=== PATIENT | male | born 1995 | race Asian ===

== ENCOUNTER 2021-03-16 17:39 | Emergency (ER) | payer OTHER ==
[2021-03-16 17:59] VITALS: BP 132/86
--- NOTE | 2021-03-16 19:22 | ED Physician Documentation ---
PD HPI URI - Stated complaint Stated Complaint: BODY ACHES,COUGH,SORE THROAT - Chief complaint Chief Complaint: Resp - History obtained from History obtained from: Patient - History of Present Illness Timing - onset: Today Associated symptoms: Nasal congestion, Dry cough. 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 He states that his command told him to come here to get an SIQ chit. Nothing makes it better or worse. No vomiting. No diarrhea. No abdominal pain. Review of Systems Constitutional: denies: Fever, Chills GI: denies: Vomiting, Diarrhea Skin: denies: Rash Musculoskeletal: denies: Neck pain, Back pain Neurologic: denies: Headache PD PAST MEDICAL HISTORY - Past Medical History Past Medical History: No - Past Surgical History Past Surgical History: No - Present Medications Home Medications: Ambulatory Orders Medication Instructions Recorded Confirmed Benzonatate [Tessalon] 200 mg PO TID PRN #30 cap 03/16/21 Cetirizine HCl/Pseudoephedrine 1 each PO BID PRN #30 ea 03/16/21 [Zyrtec-D Tablet] - Allergies Allergies/Adverse Reactions: Allergies Allergy/AdvReac Type Severity Reaction Status Date / Time No Known Drug Allergies Allergy Verified 03/16/21 17:59 - Social History Does the pt smoke?: No Smoking Status: Never smoker Does the pt drink ETOH?: No Does the pt have substance abuse?: No - Immunizations Immunizations are current?: Yes - POLST Patient has POLST: No PD ED PE NORMAL - Vitals Vital signs reviewed: Yes - General General: Alert and oriented X 3, No acute distress, Well developed/nourished - HEENT HEENT: PERRL, Ears normal, Moist mucous membranes, Pharynx benign - Neck Neck: Supple, no meningeal sign, No adenopathy - Cardiac Cardiac: RRR - Respiratory Respiratory: No respiratory distress, Clear bilaterally - Abdomen Abdomen: Soft, Non tender, Non distended - Derm Derm: Warm and dry, No rash - Neuro Neuro: Alert and oriented X 3 - Psych Psych: Normal mood, Normal affect Results - Vitals Vitals: Vital Signs - 24 hr 03/16/21 17:54 Temperature 36.2 C L Heart Rate 79 Respiratory 18 Rate Blood Pressure 132/86 H O2 Saturation 98 Oxygen O2 Source Room air PD MEDICAL DECISION MAKING - ED course Complexity details: considered differential, d/w patient ED course: Patient is well-appearing, nontoxic. Afebrile. Likely Covid. We will treat as a viral syndrome. Covid testing performed. No indication for imaging. No hypoxia or respiratory distress. Patient counseled regarding signs and symptoms for which I believe and urgent re-evaluation would be necessary. Patient with good understanding of and agreement to plan and is comfortable going home at this time This document was made in part using voice recognition software. While efforts are made to proofread this document, sound alike and grammatical errors may occur. Departure - Departure Disposition: 01 Home, Self Care Clinical Impression: Viral URI Condition: Good Instructions: ED Viral Syndrome Follow-Up: YOB[facility] Rod [Provider Group] - Within 1 week Prescriptions: Benzonatate [Tessalon] 200 mg PO TID PRN #30 cap PRN Reason: Cough Cetirizine HCl/Pseudoephedrine [Zyrtec-D Tablet] 1 each PO BID PRN #30 ea PRN Reason: nasal congestion Comments: Please follow-up with your doctor as needed for further care. Drink plenty of fluids and rest. Your prescriptions were sent to the [facility] pharmacy. You have a Covid test pending. You need to self quarantine until the result is done and negative. The results should be done in 24-48 hours. We will call with a positive result, the fastest way to get a negative result for confirmation though is to go to the hospital website at [email or web address], click on the my [facility] tab and sign up for the patient portal. If any of your friends and/or family need to be tested, they can call the hospital at [phone] for an appointment to have their Covid test. You will need to be quarantined until you receive your test results. If they are positive, the doctors hospital medical personnel will tell you how long to stay quarantined. If they are negative, you do not need to be quarantined. Discharge Date/Time: 03/16/21 19:29
== END 2021-03-16 19:29 | disposition home or self-care (01) ==
LOC: ED 17:39
DX: J06.9 Acute upper respiratory infection, unspecified (principal); B97.89 Other viral agents as the cause of diseases classified elsewhere; Z20.822 Contact with and (suspected) exposure to COVID-19
CPT/HCPCS: 99283

== ENCOUNTER 2021-04-02 09:58 | Emergency (ER) | payer OTHER ==
[2021-04-02 10:15] VITALS: BP 140/83
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
[2021-04-02] MEDS ORDERED: IBUPROFEN 800 MG TABLET PO STA (10:55)
== END 2021-04-02 11:02 | disposition home or self-care (01) ==
LOC: ED 09:58
DX: M54.2 Cervicalgia (principal); R51.9 Headache, unspecified; V89.2XXA Person injured in unspecified motor-vehicle accident, traffic, initial encounter
CPT/HCPCS: 99282; A9270

== ENCOUNTER 2021-10-15 16:32 | Outpatient (CLI) | payer OTHER ==
[2021-10-15 23:28] LABS: CHLAMYDIA TRACHOMATIS DNA NEGATIVE (NEGATIVE); NEISSERIA GONORRHOEAE DNA NEGATIVE (NEGATIVE)
== END 2021-10-15 16:33 | disposition home or self-care (01) ==
LOC: LAB.N 16:32
PROVIDERS: ATTEND Registered Nurse
DX: R30.9 Painful micturition, unspecified (principal)
CPT/HCPCS: 87491; 87591; 87661

== ENCOUNTER 2021-11-19 08:00 | Outpatient (CLI) | payer OTHER ==
[2021-11-19 23:02] LABS: CHLAMYDIA TRACHOMATIS DNA NEGATIVE (NEGATIVE); NEISSERIA GONORRHOEAE DNA NEGATIVE (NEGATIVE)
== END 2021-11-19 23:59 | disposition home or self-care (01) ==
LOC: LAB.N 08:00
PROVIDERS: ATTEND Registered Nurse
DX: R30.9 Painful micturition, unspecified (principal)
CPT/HCPCS: 87491; 87591; 87661

== ENCOUNTER 2021-11-30 22:33 | Emergency (ER) | payer OTHER ==
--- NOTE | 2021-11-30 23:37 | ED Physician Documentation ---
History of Present Illness - Stated complaint Stated Complaint: COUGH PHLEGM/BLOOD - Chief complaint Chief Complaint: Resp - History obtained from History obtained from: Patient - History of Present Illness Timing: How many days ago (3) Pain level now: 0 Improved by: no ameliorating factors Worsened by: no exacerbating factors - Additonal information Additional information: c/o 3 days of worsening sinus and chest congestion, hoarse voice , cough productive of green sputum that became blood-tinged today. Denies fever. Review of Systems Constitutional: reports: Myalgias, Fatigue. denies: Fever, Chills, Sweats Ears: denies: Ear pain Nose: reports: Congestion, Sinus pressure / pain. denies: Rhinorrhea / runny nose Throat: denies: Sore throat Cardiac: reports: Reviewed and negative Respiratory: reports: Cough, Hemoptysis (blood-tinged sputum since earlier today). denies: Dyspnea, Wheezing GI: reports: Reviewed and negative PD PAST MEDICAL HISTORY - Past Medical History Past Medical History: No - Past Surgical History Past Surgical History: No - Present Medications Home Medications: Ambulatory Orders Medication Instructions Recorded Confirmed Azithromycin [Zithromax] 250 mg PO DAILY #4 tablet 11/30/21 Sertraline HCl 200 mg PO DAILY 11/30/21 11/30/21 - Allergies Allergies/Adverse Reactions: Allergies Allergy/AdvReac Type Severity Reaction Status Date / Time No Known Drug Allergies Allergy Verified 11/30/21 22:44 - Social History Does the pt smoke?: No Smoking Status: Never smoker Does the pt drink ETOH?: No Does the pt have substance abuse?: No - Immunizations Immunizations are current?: Yes - POLST Patient has POLST: No PD ED PE NORMAL - Vitals Vital signs reviewed: Yes - General General: Alert and oriented X 3, No acute distress, Well developed/nourished - Neck Neck: Supple, no meningeal sign - Cardiac Cardiac: RRR, No murmur, No gallop, No rub - Respiratory Respiratory: No respiratory distress, Other (scattered bilateral rhonchi without focal adventitious breath sounds ) Results - Vitals Vitals: Oxygen O2 Source Room air - Labs Labs: Laboratory Tests 11/30/21 00:11 Nasal Adenovirus (PCR) NOT DETECTED Nasal B. parapertussis DNA (PCR) NOT DETECTED Nasal Coronavir 229E PCR NOT DETECTED Nasal Coronavir HKU1 PCR NOT DETECTED Nasal Coronavir NL63 PCR NOT DETECTED Nasal Coronavir OC43 PCR NOT DETECTED Nasal Enterovir/Rhinovir PCR NOT DETECTED Nasal Influenza B PCR NOT DETECTED Nasal Influenza A PCR NOT DETECTED Nasal Parainfluen 1 PCR NOT DETECTED Nasal Parainfluen 2 PCR NOT DETECTED Nasal Parainfluen 3 PCR NOT DETECTED Nasal Parainfluen 4 PCR NOT DETECTED Nasal RSV (PCR) NOT DETECTED Nasal B.pertussis DNA PCR NOT DETECTED Nasal C.pneumoniae (PCR) NOT DETECTED Yobani Human Metapneumo PCR NOT DETECTED Nasal M.pneumoniae (PCR) NOT DETECTED Nasal SARS-CoV-2 (PCR) NOT DETECTED PD MEDICAL DECISION MAKING - ED course Complexity details: considered differential, d/w patient Departure - Departure Disposition: 01 Home, Self Care Clinical Impression: Sinusitis, Bronchitis Condition: Good Instructions: ED Upper Resp Infec Abx Tx, ED Sinusitis Abx Tx Follow-Up: YOB[facility] Rod [Provider Group] Prescriptions: Azithromycin [Zithromax] 250 mg PO DAILY #4 tablet Comments: You have a COVID test result that is pending. As we discussed, the result will not change immediate management, but if you test positive, there would be implications regarding quarantine/return to work. You were given an antibiotic (azithromycin) for sinusitis and bronchitis. The first dose was given in the ER and the prescription for the rest of the course of antibiotic has been electronically submitted to [facility] pharmacy in [place]. Forms: Activity restrictions Discharge Date/Time: 12/01/21 00:02
[2021-11-30] MEDS ORDERED: AZITHROMYCIN 250 MG TABLET PO STA (23:54)
[2021-12-01 00:04] VITALS: BP 122/71
[2021-12-01 01:24] LABS: B. PARAPERTUSSIS- RESP PCR PAN NOT DETECTED; B. PERTUSSIS- RESP PCR PANEL NOT DETECTED; C. PNEUMONIAE- RESP PCR PANEL NOT DETECTED; CORONAVIRUS 229E-RESP PCR NOT DETECTED; CORONAVIRUS HKU1-RESP PCR NOT DETECTED; CORONAVIRUS NL63-RESP PCR NOT DETECTED; CORONAVIRUS OC43-RESP PCR NOT DETECTED; HUMAN METAPNEUMOVIRUS NOT DETECTED; INFLUENZA A- RESP PCR PANEL NOT DETECTED; INFLUENZA B - RESP PCR PANEL NOT DETECTED; M. PNEUMONIAE- RESP PCR PANEL NOT DETECTED; PARAINFLUENZA VIRUS 1 NOT DETECTED; PARAINFLUENZA VIRUS 2 NOT DETECTED; PARAINFLUENZA VIRUS 3 NOT DETECTED; PARAINFLUENZA VIRUS 4 NOT DETECTED; RHINOVIRUS/ENTEROVIRUS NOT DETECTED; RSV- RESP PCR PANEL NOT DETECTED; SARS-CoV-2 -RESP PCR PANEL NOT DETECTED
== END 2021-12-01 00:02 | disposition home or self-care (01) ==
LOC: ED 22:33
DX: J32.9 Chronic sinusitis, unspecified (principal); J40 Bronchitis, not specified as acute or chronic; Z20.822 Contact with and (suspected) exposure to COVID-19
CPT/HCPCS: 87633; 99282; 99283; A9270

== ENCOUNTER 2023-07-05 19:38 | Emergency (ER) | payer OTHER ==
[2023-07-05 20:21] VITALS: BP 143/84; O2SAT 100
[2023-07-05 20:25] LABS: RAPID STREP SCREEN POSITIVE (Negative)
--- NOTE | 2023-07-05 21:15 | ED Physician Documentation ---
PD HPI HEENT - Stated complaint Stated Complaint: SWELLING,NECK PX - Chief complaint Chief Complaint: Heent - Additional information Additional information: 28-year-old male presents emergency department for sore throat, body aches, generalized malaise. Patient reports that he has been feeling ill now for the last 2 to 3 days. Difficulty pain with swallowing. No pertinent past medical history. Able to swallow no shortness of breath no difficulty breathing. PD PAST MEDICAL HISTORY - Past Medical History Past Medical History: No - Past Surgical History Past Surgical History: No - Present Medications Home Medications: Ambulatory Orders Medication Instructions Recorded Confirmed Penicillin Vk 500 mg PO BID 10 Days #40 tablet 07/05/23 - Allergies Allergies/Adverse Reactions: Allergies Allergy/AdvReac Type Severity Reaction Status Date / Time No Known Drug Allergies Allergy Verified 07/05/23 20:04 - Social History Does the pt smoke?: No Smoking Status: Never smoker Does the pt drink ETOH?: No Does the pt have substance abuse?: No - Immunizations Immunizations are current?: Yes - POLST Patient has POLST: No PD ED PE NORMAL - Vitals Vital signs reviewed: Yes - General General: Alert and oriented X 3, No acute distress, Well developed/nourished - HEENT HEENT: Moist mucous membranes, Other (Pharynx erythema, no exudation tonsils 3+ bilaterally no abscess no hot potato voice) - Cardiac Cardiac: RRR - Respiratory Respiratory: No respiratory distress, Clear bilaterally Results - Vitals Vitals: Vital Signs - 24 hr 07/05/23 20:02 Temperature 36.4 C L Heart Rate 85 Respiratory 16 Rate Blood Pressure 143/84 H O2 Saturation 100 Oxygen O2 Source Room air - Labs Labs: Laboratory Tests 07/05/23 07/05/23 20:05 20:05 Nasal Adenovirus (PCR) NOT DETECTED Nasal B. parapertussis DNA (PCR) NOT DETECTED Nasal Coronavir 229E PCR NOT DETECTED Nasal Coronavir HKU1 PCR NOT DETECTED Nasal Coronavir NL63 PCR NOT DETECTED Nasal Coronavir OC43 PCR NOT DETECTED Nasal Enterovir/Rhinovir PCR NOT DETECTED Nasal Influenza B PCR NOT DETECTED Nasal Influenza A PCR NOT DETECTED Nasal Parainfluen 1 PCR NOT DETECTED Nasal Parainfluen 2 PCR NOT DETECTED Nasal Parainfluen 3 PCR NOT DETECTED Nasal Parainfluen 4 PCR NOT DETECTED Nasal RSV (PCR) NOT DETECTED Nasal B.pertussis DNA PCR NOT DETECTED Nasal C.pneumoniae (PCR) NOT DETECTED Eleuterio Human Metapneumo PCR NOT DETECTED Nasal M.pneumoniae (PCR) NOT DETECTED Nasal SARS-CoV-2 (PCR) NOT DETECTED Group A Strep Rapid POSITIVE H PD Medical Decision Making - ED course ED course: 28-year-old male presents emergency department for throat pain. The rapid group A strep came back positive. Additional respiratory swab was found to be negative. Patient was started on antibiotics here in the emergency department and additional antibiotics were sent to his preferred pharmacy outpatient. Patient is able to breathe without any difficulty no trismus, no mastoiditis, able to swallow. Patient was given ER return precautions all questions answered told to follow-up with primary care provider as needed all questions answered safe for discharge Departure - Departure Disposition: 01 Home, Self Care Clinical Impression: Group beta Strep positive Instructions: ED Strep Pharyngitis Conf Prescriptions: Penicillin Vk 500 mg PO BID 10 Days #40 tablet Comments: Thank you for trusting us with your care you we have found that you have group A strep we have started you on antibiotics here in the emergency department I have sent your prescription to your preferred pharmacy on file please pick this up first thing tomorrow morning you will take this twice a day for the next 10 days. Please come back to the ER if you notice any worsening throat pain swelling or any other concerning emergent symptoms. Forms: PCP List Discharge Date/Time: 07/05/23 21:46
[2023-07-05] MEDS: DEXAMETHASONE 10 MG/ML VIAL PO STA (21:29)
[2023-07-05] MEDS: CHERRY SYRUP 10 ML UDC PO ONE (21:29)
[2023-07-05] MEDS: PENICILLIN VK 250 MG TABLET PO STA (21:29)
[2023-07-05 21:31] LABS: B. PARAPERTUSSIS- RESP PCR PAN NOT DETECTED; B. PERTUSSIS- RESP PCR PANEL NOT DETECTED; C. PNEUMONIAE- RESP PCR PANEL NOT DETECTED; CORONAVIRUS 229E-RESP PCR NOT DETECTED; CORONAVIRUS HKU1-RESP PCR NOT DETECTED; CORONAVIRUS NL63-RESP PCR NOT DETECTED; CORONAVIRUS OC43-RESP PCR NOT DETECTED; HUMAN METAPNEUMOVIRUS NOT DETECTED; INFLUENZA A- RESP PCR PANEL NOT DETECTED; INFLUENZA B - RESP PCR PANEL NOT DETECTED; M. PNEUMONIAE- RESP PCR PANEL NOT DETECTED; PARAINFLUENZA VIRUS 1 NOT DETECTED; PARAINFLUENZA VIRUS 2 NOT DETECTED; PARAINFLUENZA VIRUS 3 NOT DETECTED; PARAINFLUENZA VIRUS 4 NOT DETECTED; RHINOVIRUS/ENTEROVIRUS NOT DETECTED; RSV- RESP PCR PANEL NOT DETECTED; SARS-CoV-2 -RESP PCR PANEL NOT DETECTED
== END 2023-07-05 21:46 | disposition home or self-care (01) ==
LOC: ED 19:38
DX: J02.0 Streptococcal pharyngitis (principal); B95.1 Streptococcus, group B, as the cause of diseases classified elsewhere
CPT/HCPCS: 87430; 87633; 99283; A9270

== ENCOUNTER 2023-07-19 08:00 | Outpatient (CLI) | payer OTHER ==
[2023-07-19 23:04] LABS: CHLAMYDIA TRACHOMATIS DNA NEGATIVE (NEGATIVE); NEISSERIA GONORRHOEAE DNA NEGATIVE (NEGATIVE); TRICHOMONAS VAGINALIS DNA NEGATIVE (NEGATIVE)
[2023-07-21 03:14] LABS: HIV SCREEN 4TH GENERATION Non Reactive (Non Reactive)
[2023-07-21 04:10] LABS: RPR Non Reactive (Non Reactive)
[2023-07-21 05:14] LABS: HSV 1 IGG TYPE SPEC <0.91 index (0.00-0.90); HSV 2 IGG TYPE SPEC <0.91 index (0.00-0.90)
== END 2023-07-19 23:59 | disposition home or self-care (01) ==
LOC: LAB.N 08:00
PROVIDERS: ATTEND Physician Assistant
DX: R30.0 Dysuria (principal)
CPT/HCPCS: 86592; 86695; 86696; 86803; 87389; 87491; 87591; 87661

== ENCOUNTER 2023-10-14 13:05 | Outpatient (CLI) | payer OTHER ==
--- NOTE | 2023-10-14 14:09 | Sleep Patient Instructions ---
Sleep Center Visit Summary - Patient Visit Information Reason for Visit: Initial consult for evaluation of sleep disordered breathing and other sleep issues. - Patient Instructions Instructions Attached: Sleep Study Additional Instructions: You will be completing a sleep study, either an in-lab polysomnography (PSG) or home sleep study (HST). You will follow-up in the sleep care office after the sleep study is completed to hear the results and talk about therapy, if needed. You will be called by our office staff to schedule this appointment, but you may contact us with any questions. - Clinic Information Contact: [facility] [address] [place] [address] [email or web address] T: [phone]
--- NOTE | 2023-10-14 14:13 | SLEEP CARE CONSULTATION ---
Information from patient questionnaire entered by Roxanne Reinoso. I have reviewed and concur with the information entered by Roxanne Reinoso. This document represents the service I personally performed and the decisions made by me, Cami Ribera ARNP. History of Present Illness Service Date and Time: 10/14/2023 1305 Reason for Visit: New patient Chief Complaint: reports: Insomnia, Unrefreshed sleep, Excessive daytime sleepiness, Fatigue, Frequent awakenings at night Date of Onset: 8 years Usual bedtime: 9:30 - 10:30 Time it takes to fall asleep: 1 - 4 hours Snores at night: Yes Observed to quit breathing while asleep: Yes Sleeps alone due to snoring: No Number of times waking at night: 2 - 3 Reasons for waking at night: reports: Bathroom, Other (Unknown reason) Toss, Turn, or Twitch while sleeping: Yes Recalls having dreams: No Usually gets out of bed at: 5:50 - 10 - 11 AM Feels refreshed in the morning: No Morning headache: No Sleepy or fatigued during the day: Yes Ever fallen asleep while driving: No (some drowsy driving) Takes day naps: No Dreams during day naps: Yes Prior sleep studies: No Additional HPI information: I had the pleasure of seeing SEFERINO ECHEVARRIA today regarding the possibility of him having a sleep disorder. His current complaints are excessive daytime sleepiness, fatigue, frequent night awakenings, insomnia and unrefreshed sleep. He says he can be in bed for up to 4 hours trying to fall asleep. He has been told that he snores. He has "overall tiredness" and just does not feel he sleeps well "at all". He either sleeps not enough or too much but does not feel rested when he gets up. He is being evaluated for possible ADHD. He takes Unisom every night with can help him fall asleep. He does not nap during the day. - Parasomnia Symptoms Ever been unable to move upon waking from sleep: Yes (used to have it a lot but not recently; only 3 times this year) Walks in sleep: No Talks in sleep: Yes Ever acted out dreams in sleep: Yes (waking up punching or kicking) Ever felt weak in the knees when startled or emotional: No Bothered by creepy, crawly, restless sensations in legs: Yes Problems with memory or concentration: Yes (both) Subjective Initial [place] Sleepiness Scale score: 15 (10/14/2023) Past Medical History Past Medical History: reports: Anxiety, Depression, Mood disorder (bad mood swings), Other (Getting seen for ADHD) Social History 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 Patient is single and lives in [place]. Have you smoked in the past 12 months: Yes (Vapes daily) Quit date: 2017 Alcohol use: Yes Alcohol amount and frequency: 2 - 3 beers, 1 - 2 times a month Caffeine use: Yes Caffeine amount and frequency: 500 - 600 mg every day Family History Family history of sleep disordered breathing: Yes Family Hx Sleep Apnea: Sibling: Sleep apnea - Treated (Brother and uncle), O ther: Sleep apnea - Treated Allergies and Home Medications Known drug allergies: No Drug allergies reviewed: Yes Home medication list reviewed: Yes (Wellbutrin, Unisom, melatonin, tylenol) Allergy and home medication list: Allergies No Known Drug Allergies Allergy Review of Systems Weight gain over past 5 years: 20 Cardiovascular: denies: high blood pressure Gastrointestinal: denies: heartburn Neurological: reports: fainting or unconsciousness. denies: headaches Psychiatric: reports: anxiety, depression, mood disorder Ear/Nose/Throat: reports: wisdom teeth removed. denies: tonsillectomy Endocrine: denies: thyroid disease Physical Exam Vital signs obtained and entered by: Cami Maria NP Blood Pressure: 149/93 Cuff size: regular (right arm) Heart Rate: 74 O2 Saturation: 98 Height: 5 ft 9.75 in Weight: 197 lb Body Mass Index: 28.4 BMI Classification: Overweight Neck circumference: 16 Mouth and throat: narrow oropharynx Soft palate: long Hard palate: normal Uvula: normal Uvula visualization: 25% Mallampati Class III Tongue: enlarged in size with teeth steven on lateral edges Tonsils: 2+ Neck: normal w/o lymphadenopathy or thyromegaly Heart: regular rate and rhythm Lungs: clear bilaterally Impression and Plan 1. Suspected Obstructive Sleep Apnea-Hypopnea Syndrome, as suggested by a history of loud and irregular snoring, observed cessation of breath while asleep, frequent awakening during the night, unrefreshed sleep, cognitive impairment, and excessive daytime sleepiness. Narrow oropharynx and obesity are common predisposing factors for obstructive sleep apnea-hypopnea syndrome. Because he has difficulties falling asleep, I offered a one-time dose of zolpidem 5 mg for the night and sleep study and he accepted. We discussed side effects and he voiced understanding.I recommend proceeding to polysomnography to confirm the diagnosis and to assess severity. If the patient has significant sleep disordered breathing, a manual CPAP titration study will also be performed to find the optimal treatment pressure. I informed the patient of what the sleep studies involve and after some discussion, obtained agreement to proceed. The pathophysiology of obstructive sleep apnea-hypopnea syndrome was discussed with the patient and health risks of cardiovascular and cerebrovascular disease if not treated. 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 Patient agreed to plan. * Schedule polysomnography +- manual CPAP titration study and return in 1-2 weeks after the study to discuss result and initiate therapy. * Zolpidem 5 mg for night of sleep study * Avoid long distance driving or driving when feeling sleepy. * Avoid alcohol, sedative and muscle relaxant around bedtime. * Attempt to lose weight. * Review instructions provided by trained office staff on how to prepare for the sleep study. * Return for follow-up after sleep study completed. Counseling Topics: Weight loss health impact Plan: PSG and followup Visit Type: In Office Time Spent with Patient (minutes): 25 Provider Statement: I spent 100% of the Face to Face Visit with the patient with greater than 50% spent counseling the patient and coordination of care.
[2023-10-14 14:14] VITALS: BP 149/93; O2SAT 98
== END 2023-10-14 13:06 | disposition home or self-care (01) ==
LOC: SC 13:05
PROVIDERS: ATTEND Nurse Practitioner Family
DX: R06.83 Snoring (principal); G47.10 Hypersomnia, unspecified; R53.83 Other fatigue; G47.8 Other sleep disorders; G47.00 Insomnia, unspecified; F17.290 Nicotine dependence, other tobacco product, uncomplicated; R06.81 Apnea, not elsewhere classified; R41.89 Other symptoms and signs involving cognitive functions and awareness; E66.3 Overweight; Z68.28 Body mass index [BMI] 28.0-28.9, adult
CPT/HCPCS: 99202; 99212

== ENCOUNTER 2023-10-27 20:43 | Outpatient (CLI) | payer OTHER | END 2023-10-27 20:44 | disposition home or self-care (01) | LOC: SC 20:43 | PROVIDERS: ATTEND Nurse Practitioner Family | DX: G47.63 Sleep related bruxism (principal); F32.A Depression, unspecified | CPT/HCPCS: 95810 ==